=== PATIENT | female | born 1955 | race Asian ===

== ENCOUNTER 2017-08-27 07:14 | Day surgery (SDC) | payer BC, OTHER ==
[~2017-08-27 07:14] MED LIST: TIMOLOL 0.5% OPHTH DROPS ONE
[2017-08-27] MEDS ORDERED: LACTATED RINGERS 500 ML IV ONE (07:25)
[2017-08-27] MEDS ORDERED: PHENYLEPHRINE 2.5% OPHTH 2 ML DROPS ONE (07:35)
[2017-08-27] MEDS ORDERED: KETOROLAC 0.45% OPHTH DROPS ONE (07:35)
[2017-08-27] MEDS ORDERED: PROPARACAINE 0.5% OPHTH DROPS 15 ML ONE (07:35)
[2017-08-27] MEDS ORDERED: CYCLOPENTOLATE 1% OPHTH DROPS 2 ML ONE (07:35)
[2017-08-27] MEDS ORDERED: EPINEPHrine 1 MG/ML AMP IVP ONE ×2 (08:42→09:08)
[2017-08-27] MEDS ORDERED: CHONDR SULF/HYALURONATE SYRINGE IO ONE ×2 (08:42→09:08)
[2017-08-27] MEDS ORDERED: BRIMONIDINE 0.2% OPHTH DROPS 5 ML OPTH ONE ×2 (08:42→09:08)
[2017-08-27] MEDS ORDERED: TIMOLOL 0.5% OPHTH DROPS OPTH ONE ×2 (08:42→09:09)
[2017-08-27] MEDS ORDERED: BSS/LIDOCAINE/EPINEPHRINE 1 ML SYRINGE IO ONE ×2 (08:43→09:09)
[2017-08-27] MEDS ORDERED: TRIAMCIN/MOXIFLOX/VANCO 1 ML VIAL IO ONE ×3 (08:43→09:09)
[2017-08-27] MEDS ORDERED: PROPARACAINE 0.5% OPHTH DROPS 15 ML RIGHTEYE ONE ×2 (08:43→09:10)
[2017-08-27] MEDS ORDERED: MIDAZOLAM 2 MG/2 ML VIAL IVP ONE (09:11)
[2017-08-27 09:45] VITALS: BP 101/63
[2017-08-27] MEDS ORDERED: BRIMONIDINE 0.2% OPHTH DROPS 5 ML ONE (10:03)
--- NOTE | 2017-08-27 10:46 | OPERATIVE REPORT ---
DATE OF SERVICE: 08/27/2017 Physician: Дмитрий Freeman MD PREOPERATIVE DIAGNOSIS: Visually significant cataract, right eye. This is her first cataract surgery. POSTOPERATIVE DIAGNOSIS: Visually significant cataract, right eye. This is her first cataract surgery. NAME OF PROCEDURE: Phacoemulsification with posterior chamber intraocular lens implant, right eye. SURGEON: Дмитрий Freeman MD ANESTHESIA: Monitored anesthesia care. COMPLICATIONS: None. OPERATIVE INDICATIONS: This is a 62-year-old woman with progressive vision loss in the right eye due to 2+ nuclear sclerotic and 2+ posterior subcapsular cataract. Best corrected visual acuity was 20/30 with glare to 20/400 in the right eye. INDICATIONS FOR SURGERY: Overall decrease in vision, difficulty seeing words on the computer screen; difficulty seeing words, closed caption or game scores on TV; difficulty seeing street signs, difficulty driving in low light or at night, difficulty driving at night because of headlights from other vehicles, difficulty with glare or bright lights in any situation, difficulty tracking a golf ball and decreased acuity with firearms. She was consented at length concerning risks and benefits of cataract surgery, after which she expressed a desire to proceed with surgery. OPERATIVE PROCEDURE: The patient was taken into OR #3, and placed under monitored anesthesia care. A surgical timeout was conducted confirming correct patient, correct procedure, and correct surgical site. She was placed on the LenSx laser and her eye docked with the laser interface. The laser performed the capsulotomy, lens softening, phaco wounds and arcuate keratotomy incisions. She was then moved to the operating microscope, given topical anesthesia, and prepped and draped in the usual sterile fashion. The eye was entered at the 12 and 9 o'clock positions. Intracameral Shugarcaine was injected into the anterior chamber, followed by Viscoat. A capsulorrhexis flap created by the LenSx laser was removed from the anterior chamber. The nucleus was hydrodissected and phacoemulsified. The cortex was evacuated using automated infusion and aspiration. Provisc was injected in the capsular bag, and a 20.0 diopter intraocular lens was inserted in the bag. Approximately 0.8 mL of a mixture of triamcinolone, moxifloxacin and vancomycin was injected subconjunctivally in the superior quadrant for infection and inflammation prophylaxis. I and A was used to evacuate the viscoelastic materials. The eye was inflated to physiologic pressures with balanced salt solution and found to be watertight. The patient was taken from the operating room in good condition and given postoperative instructions. TD: 08/27/2017 10:46
== END 2017-08-27 07:15 | disposition home or self-care (01) ==
LOC: SDS 07:14
PROVIDERS: ATTEND Ophthalmology
PROC: 08RJ3JZ Replacement of Right Lens with Synthetic Substitute, Percutaneous Approach (ICD-10-PCS; principal; 2017-08-27 08:30)
DX: H25.811 Combined forms of age-related cataract, right eye (principal)
CPT/HCPCS: 66984; A9270; J3490; V2632

== ENCOUNTER 2017-10-15 08:56 | Day surgery (SDC) | payer BC ==
[~2017-10-15 08:56] MED LIST changes: +BRIMONIDINE 0.2% OPHTH DROPS 5 ML ONE
[2017-10-15] MEDS ORDERED: PHENYLEPHRINE 2.5% OPHTH 2 ML DROPS ONE (09:19)
[2017-10-15] MEDS ORDERED: PROPARACAINE 0.5% OPHTH DROPS 15 ML ONE (09:19)
[2017-10-15] MEDS ORDERED: KETOROLAC 0.45% OPHTH DROPS ONE (09:19)
[2017-10-15] MEDS ORDERED: CYCLOPENTOLATE 1% OPHTH DROPS 2 ML ONE (09:19)
[2017-10-15] MEDS ORDERED: CYCLOPENTOLATE 1% OPHTH DROPS 2 ML LEFTEYE ONE (09:30)
[2017-10-15] MEDS ORDERED: PHENYLEPHRINE 2.5% OPHTH 2 ML DROPS LEFTEYE ONE (09:30)
[2017-10-15] MEDS ORDERED: PROPARACAINE 0.5% OPHTH DROPS 15 ML LEFTEYE ONE ×2 (09:30→12:00)
[2017-10-15] MEDS ORDERED: KETOROLAC 0.45% OPHTH DROPS LEFTEYE ONE (09:30)
[2017-10-15] MEDS ORDERED: LACTATED RINGERS 500 ML IV ONE (09:46)
--- NOTE | 2017-10-15 10:53 | ANESTHESIA ---
Labs, EKG, Meds, Allergy - Medications Medications: Ambulatory Orders Medication Instructions Recorded Confirmed Rizatriptan Benzoate [Maxalt] 5 mg PO ONCE PRN 08/26/17 10/15/17 Valacyclovir HCl [Valtrex] 1,000 mg PO TID PRN 08/26/17 10/15/17 - Allergy Allergy: Allergies Allergy/AdvReac Type Severity Reaction Status Date / Time oxycodone [From Percocet] AdvReac Unknown Verified 10/15/17 09:31 Rizatriptan Benzoate [Maxalt] 5 mg PO ONCE PRN 08/26/17 Valacyclovir HCl [Valtrex] 1,000 mg PO TID PRN 08/26/17 Exam - Vitals Vitals:: Temp Pulse Resp BP Pulse Ox 36.6 C 61 16 104/60 96 10/15/17 09:22 10/15/17 09:22 10/15/17 09:22 10/15/17 09:22 10/15/17 09:22
[2017-10-15] MEDS ORDERED: BRIMONIDINE 0.2% OPHTH DROPS 5 ML OPTH ONE (11:58)
[2017-10-15] MEDS ORDERED: CHONDR SULF/HYALURONATE SYRINGE IO ONE (11:59)
[2017-10-15] MEDS ORDERED: BSS/LIDOCAINE/EPINEPHRINE 1 ML SYRINGE IO ONE ×2 (11:59)
[2017-10-15] MEDS ORDERED: EPINEPHrine 1 MG/ML AMP IR ONE (11:59)
[2017-10-15] MEDS ORDERED: TIMOLOL 0.5% OPHTH DROPS OPTH ONE (11:59)
[2017-10-15] MEDS ORDERED: TRIAMCIN/MOXIFLOX/VANCO 1 ML VIAL IO ONE ×2 (12:00)
[2017-10-15] MEDS ORDERED: MIDAZOLAM 2 MG/2 ML VIAL IVP ONE (12:00)
[2017-10-15 12:18] VITALS: BP 108/62
--- NOTE | 2017-10-15 21:22 | OPERATIVE REPORT ---
DATE OF SERVICE: 10/15/2017 Physician: Дмитрий Freeman MD PREOPERATIVE DIAGNOSIS: Visually significant cataract, left eye. This was her second cataract surgery. Cataract surgery was performed on the right eye on 08/27/2017. POSTOPERATIVE DIAGNOSIS: Visually significant cataract, left eye. This was her second cataract surgery was performed on the right eye on 08/27/2017. PROCEDURE: Phacoemulsification with posterior chamber intraocular lens implant, left eye. SURGEON: Дмитрий Freeman MD ANESTHESIA: Monitored anesthesia care. COMPLICATIONS: None. OPERATIVE INDICATIONS: This is a 62-year-old woman with progressive vision loss in the left eye due to 2+ nuclear sclerotic and 1+ posterior subcapsular cataract. Best corrected visual acuity was 20/30 with glare to 20/400 in the left eye. INDICATIONS FOR SURGERY: Overall decrease in vision, difficulty seeing words on a computer screen, difficulty reading, difficulty seeing street signs, difficulty driving in low light or night, difficulty driving at night because of headlights from other vehicles, difficulty with glare or bright lights in any situation, difficulty tracking a golf ball, and decreased acuity with firearms. She was consented at length concerning the risks and benefits of cataract surgery, after which she expressed a desire to proceed with surgery. OPERATIVE PROCEDURE: The patient was taken into OR #3 and placed under monitored anesthesia care. A surgical timeout was conducted confirming correct patient, correct procedure, and correct surgical site. She was placed on the LenSx laser and her eye docked to the laser interface. The laser performed the capsulotomy, lens softening, phaco wounds and arcuate keratotomy incisions. She was then moved to the operating microscope, given topical anesthesia and then prepped and draped in the usual sterile fashion. The eye was entered at the 6 and 3 o'clock positions. Intracameral Shugarcaine was injected into the anterior chamber, followed by Viscoat. The capsulorrhexis flap created by the LenSx laser was removed from the anterior chamber. Nucleus was hydrodissected and phacoemulsified, and the cortex was evacuated using automated infusion aspiration. Provisc was injected in the capsular bag, and a 20.0 diopter intraocular lens was inserted in the bag. Approximately 0.8 mL of a mixture of triamcinolone and moxifloxacin was injected subconjunctivally in the superior quadrant for infection and inflammation prophylaxis. I and A was used to evacuate the viscoelastic materials. The eye was inflated to physiologic pressure using balanced salt solution and found to be watertight. The patient was taken from the operating room in good condition and given postoperative instructions. TD: 10/15/2017 21:20
== END 2017-10-15 08:57 | disposition home or self-care (01) ==
LOC: SDS 08:56
PROVIDERS: ATTEND Ophthalmology
PROC: 08RK3JZ Replacement of Left Lens with Synthetic Substitute, Percutaneous Approach (ICD-10-PCS; principal; 2017-10-15 10:00)
DX: H25.812 Combined forms of age-related cataract, left eye (principal); I95.9 Hypotension, unspecified; G43.909 Migraine, unspecified, not intractable, without status migrainosus; Z86.73 Personal history of transient ischemic attack (TIA), and cerebral infarction without residual deficits
CPT/HCPCS: 66984; A9270; J3490; V2632

== ENCOUNTER 2018-04-01 11:56 | Emergency (ER) | payer BC ==
--- NOTE | 2018-04-01 13:01 | XRAY Report ---
Reason: Trauma Procedure Date: 04/01/2018 Accession Number: [id number] / [id number] Procedure: XR - Ankle 3 View RT CPT Code: FULL RESULT: EXAM: RIGHT ANKLE RADIOGRAPHY EXAM DATE: 04/01/2018 12:41 PM. CLINICAL HISTORY: Trauma. Pain. COMPARISON: None. TECHNIQUE: 3 views. FINDINGS: Bones: Acute comminuted displaced fracture mid diaphysis fifth metatarsal. Joints: Normal. No effusion. No subluxations. The ankle mortise is normally aligned. Soft Tissues: Edema at the fracture site. IMPRESSION: Fifth metatarsal fracture. RADIA
--- NOTE | 2018-04-01 13:10 | XRAY Report ---
Reason: Trauma Procedure Date: 04/01/2018 Accession Number: [id number] / [id number] Procedure: XR - Foot 3 View RT CPT Code: FULL RESULT: EXAM: RIGHT FOOT RADIOGRAPHY EXAM DATE: 04/01/2018 12:41 PM. CLINICAL HISTORY: Trauma. COMPARISON: None. TECHNIQUE: 3 views. FINDINGS: Diaphyseal fracture of the fifth metatarsal without extension to adjacent joints and approximately one shaft width medial displacement of the distal fragment. IMPRESSION: Fifth metatarsal fracture as described. RADIA
[2018-04-01] MEDS ORDERED: HYDROcod/ACETAM 5/325 MG TABLET PO STA (13:42)
--- NOTE | 2018-04-01 13:45 | ED Physician Documentation ---
PD HPI LOWER EXT INJURY - Stated complaint Stated Complaint: R FOOT INJ - Chief complaint Chief Complaint: Ext Problem - History obtained from History obtained from: Patient - History of Present Illness PD HPI LOW EXT INJURY LOCATION: Right, Foot Type of injury: Fall Where injury occurred: Home Timing - onset: Today Timing - details: Abrupt onset Improved by: Rest, Ice Associated symptoms: No: Numbness, Tingling, Swelling - Additional information Additional information: Fell downstairs and not sure which she did do her foot specifically. No other injuries. Orchard a crack. Cannot walk or bear weight. 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 HEENT: Cataracts, Other - Present Medications Home Medications: Ambulatory Orders Medication Instructions Recorded Confirmed Rizatriptan Benzoate [Maxalt] 5 mg PO ONCE PRN 08/26/17 10/15/17 Valacyclovir HCl [Valtrex] 1,000 mg PO TID PRN 08/26/17 10/15/17 Hydrocodone/Acetaminophen 1 - 2 each PO Q6H PRN #20 tablet 04/01/18 [Hydrocodon-Acetaminophen 5-325] Knee Scooter 1 unit TD ONCE #1 04/01/18 Multivitamin [Multiple Vitamins] 04/01/18 - Allergies Allergies/Adverse Reactions: Allergies Allergy/AdvReac Type Severity Reaction Status Date / Time oxycodone [From Percocet] AdvReac Unknown Verified 04/01/18 12:27 - Social History Does the pt smoke?: No Smoking Status: Never smoker Does the pt drink ETOH?: No Does the pt have substance abuse?: No - Immunizations Immunizations: TDAP >10years/unknown - POLST Patient has POLST: No PD ED PE NORMAL - Vitals Vital signs reviewed: Yes - General General: Alert and oriented X 3, No acute distress - Neck Neck: Supple, no meningeal sign, No bony TTP - Extremities Extremities: Other (Quite tender to the lateral midfoot, no deformity. Normal cap refill and sensation in all the digits.) - Neuro Neuro: Alert and oriented X 3, Normal speech Results - Vitals Vitals: Vital Signs - 24 hr 04/01/18 12:24 Temperature 36.4 C L Heart Rate 70 Respiratory 16 Rate Blood Pressure 123/71 O2 Saturation 98 Oxygen O2 Source Room air - Rads (name of study) R foot 3v Radiology: EMP read contemporaneously (Angulated midshaft fifth metatarsal fracture) Procedures - Splint (location) R foot Splint applied by: Tech Type of splint: Fiberglass, Short leg, Posterior Other: Patient tolerated well, No complications, Neurovascular intact, Crutches provided PD MEDICAL DECISION MAKING - Sepsis Event Vital Signs: Vital Signs - 24 hr 04/01/18 12:24 Temperature 36.4 C L Heart Rate 70 Respiratory 16 Rate Blood Pressure 123/71 O2 Saturation 98 Oxygen O2 Source Room air Departure - Departure Disposition: 01 Home, Self Care Clinical Impression: Displaced fracture of fifth metatarsal bone of right foot Qualifiers: Encounter type: initial encounter Fracture type: closed Qualified Code(s): S92.351A - Displaced fracture of fifth metatarsal bone, right foot, initial encounter for closed fracture Condition: Good Record reviewed to determine appropriate education?: Yes Instructions: ED Fx Foot Follow-Up: [facility] [Provider Group] - Within 1 week Prescriptions: Hydrocodone/Acetaminophen [Hydrocodon-Acetaminophen 5-325] 1 - 2 each PO Q6H PRN #20 tablet PRN Reason: pain Knee Scooter 1 unit TD ONCE #1 Comments: Follow-up with the orthopedist, call today for an appointment. Return if worse. Keep it elevated as much as possible. Do not walk or bear weight on it. Keep the splint on and dry at all times. Do not drink or drive while taking narcotic pain medication. Note that many narcotic pain relievers also contain Tylenol/acetaminophen. Please ensure that your total dose of acetaminophen from all sources does not exceed 3 g (3000 mg) per day. You may get constipated while on this medication. Take a stool softener such as Colace twice a day while you are on it. Also add an [id number] laxative such as senna or MiraLAX on any day that you do not have a bowel movement. If you received a narcotic pain medication or sedative while in the emergency department, do not drive for the next 24 hours.
[2018-04-01 14:28] VITALS: BP 124/72
== END 2018-04-01 14:26 | disposition home or self-care (01) ==
LOC: ED 11:56
DX: S92.351A Displaced fracture of fifth metatarsal bone, right foot, initial encounter for closed fracture (principal); W10.9XXA Fall (on) (from) unspecified stairs and steps, initial encounter; Y92.009 Unspecified place in unspecified non-institutional (private) residence as the place of occurrence of the external cause
CPT/HCPCS: 29515; 73610; 73630; 99283; A9270

== ENCOUNTER 2018-04-08 06:15 | Day surgery (SDC) | payer BC ==
[2018-04-08] MEDS ORDERED: ceFAZolin 2 GM/50 ML 2 GM/50 ML BAG IV ONE ×2 (06:29→08:54)
[2018-04-08] MEDS ORDERED: LACTATED RINGERS 1,000 ML IV ONE ×2 (07:00→09:22)
--- NOTE | 2018-04-08 07:05 | ANESTHESIA ---
Pre-Anesthesia VS, & Labs - Diagnosis right foot fifth metatarsal foot fracture - Procedure orif of fifth metatarsal right Vital Signs: Temp Pulse Resp BP Pulse Ox 36.6 C 75 16 117/60 97 04/08/18 06:46 04/08/18 06:46 04/08/18 06:46 04/08/18 06:46 04/08/18 06:46 Height 5 ft 2 in Weight (kg) 63.18 kg Body Mass Index 25.2 - NPO >8 hours - Is Patient ?: Not Applicable - Lab Results Lab results reviewed: Yes Home Medications and Allergies Rizatriptan Benzoate [Maxalt] 5 mg PO ONCE PRN 08/26/17 Valacyclovir HCl [Valtrex] 1,000 mg PO TID PRN 08/26/17 Multivitamin [Multiple Vitamins] 04/01/18 Allergies/Adverse Reactions: Allergies Allergy/AdvReac Type Severity Reaction Status Date / Time oxycodone [From Percocet] AdvReac Unknown Verified 04/01/18 12:27 Anes History & Medical History - Anesthetic History Anesthesia Complications: reports: No previous complications Family history of Anesthesia Complications: Denies Family history of Malignant Hyperthermia: Denies - Medical History Cardiovascular: reports: None Pulmonary: reports: Other Gastrointestinal: reports: None Urinary: reports: Chronic bladder infection, Kidney stones Musculoskeletal: reports: Osteoarthritis, Chronic back pain Endocrine/Autoimmune: reports: None Skin: reports: Herpes zoster Smoking Status: Never smoker - Surgical History General: Colonoscopy Eyes Ears Nose Throat (EENT): Cataracts, Tonsil/Adenoidectomy Gynecologic: Hysterectomy, Oophrectomy Orthopedic: Other Exam General: Alert, Oriented x3, Cooperative, No acute distress Dental: Other (bridges) Mouth Openin Fingerbreadth Neck Mobility: Normal Mallampati classification: II Thyromental Distance: greater than 6 cm Respiratory: Lungs clear, Normal breath sounds, No respiratory distress, No accessory muscle use Cardiovascular: Regular rate, Normal S1, Normal S2, No murmurs Mental/Cognitive Status: Alert/Oriented X3, Normal for patient Cognitive Status: Within normal limits Plan Anesthesia Type: General Consent for Procedure(s) Verified and Reviewed: Yes Code Status: Attempt Resuscitation ASA classification: 2-Mild systemic disease Is this case an emergency?: No
[2018-04-08] MEDS ORDERED: LIDOCAINE 1%-EPI 1:100000 30 ML MDV ONE (07:57)
[2018-04-08] MEDS ORDERED: BUPIVACAINE 0.25% PF 30 ML VIAL ONE (07:58)
[2018-04-08] MEDS ORDERED: LIDOCAINE 1%-EPI 1:100000 20 ML MDV SUBQ ONE ×2 (08:32)
[2018-04-08] MEDS ORDERED: BUPIVACAINE 0.25% PF 30 ML VIAL SUBQ ONE ×3 (08:33)
[2018-04-08] MEDS ORDERED: HYDROcod/ACETAM 5/325 MG TABLET PO PRN (08:53)
[2018-04-08] MEDS ORDERED: PROPOFOL 200 MG/20 ML VIAL IVP ONE (08:54)
[2018-04-08] MEDS ORDERED: MIDAZOLAM 2 MG/2 ML VIAL IVP ONE (08:54)
[2018-04-08] MEDS ORDERED: ePHEDrine 50 MG/ML VIAL IVP ONE (08:54)
[2018-04-08] MEDS ORDERED: LIDOCAINE-MPF 2% 5 ML VIAL IM ONE (08:54)
[2018-04-08] MEDS ORDERED: ONDANSETRON 4 MG/2 ML VIAL IVP ONE (08:54)
[2018-04-08] MEDS: fentaNYL 100 MCG/2 ML VIAL ONE ×4 (08:58→09:21)
[2018-04-08] MEDS ORDERED: KETOROLAC 30 MG/ML VIAL ONE (08:58)
[2018-04-08] MEDS ORDERED: ACETAMINOPHEN 1,000 MG/100 ML 100 ML IV ONE (08:58)
[2018-04-08] MEDS ORDERED: HYDROcod/ACETAM 5/325 MG TABLET ONE (09:46)
[2018-04-08 10:39] VITALS: BP 128/55
--- NOTE | 2018-04-08 12:49 | OPERATIVE REPORT ---
DATE OF SERVICE: 04/08/2018 Physician: Leno Gamboa MD PREOPERATIVE DIAGNOSIS: Right foot fifth metatarsal displaced oblique fracture. POSTOPERATIVE DIAGNOSIS: Right foot fifth metatarsal displaced oblique fracture. PROCEDURE PERFORMED: Open reduction, internal fixation of right fifth metatarsal fracture. OPERATING SURGEON: Leno Gamboa MD ANESTHESIA: General, Dr. Souza. INDICATIONS FOR SURGERY: Patient is a 63-year-old female who is status post a twisting injury of her foot resulting in a mildly comminuted but widely displaced fracture of her fifth metatarsal shaft. Because of concerns of possible nonunion and persistent pain it was recommended the patient undergo o pen reduction internal fixation. FINDINGS AT SURGERY: The patient's foot was shown to be mildly swollen. Her fracture widely displac ed with hematoma in the gap and mild comminution with a separate fracture fragment. The patient's asya ne fixation was good with 2 screws and felt to be satisfactory and adequate. DESCRIPTION OF OPERATIVE PROCEDURE: The patient was taken to the operating room and was given a gene ral anesthetic in a supine position on the OR table. A tourniquet was placed on her thigh. Her leg and foot were sterilely prepped and draped in standard fashion. Once her foot was prepped a surgical timeout was held. Marking pen was used to identify the planned surgical incision, which was infiltr ated with 1% lidocaine with epinephrine, as well as placing an ankle block with the same medication a t the anterolateral ankle in the area of the sural nerve. After this, the tourniquet was inflated to 300 mmHg. The patient's incision was made and carefully dissected down through soft tissue to the l ateral aspect of the fifth metatarsal. Tissue was reflected from the fracture and hematoma evacuated and a clamp used to reduce the fracture in anatomic position. It was felt at this point that the pa tient could do well with simple screw fixation and an initial 2 mm screw as a lag screw was placed, f ollowed by a 1.5 mm more proximal screw. The screw fixation gain was excellent and the reduction noel tomic. C-arm images confirmed position of screws and reduction of the fracture. The foot wound was irrigated thoroughly. Tourniquet was deflated and there was minimal bleeding. Closure was undertake n with interrupted 3-0 Vicryl subcuticular and 4-0 Monocryl suture running subcuticular and skin. St erile dressings were applied. The patient had repeat infiltration block performed of 0.25% Marcaine plain. After sterile dressing application, the patient was fitted into her CAM boot and taken to the recovery room in stable condition. Estimated blood loss for the procedure was minimal, less than 10 mL COMPLICATIONS: None. COUNTS: Sponge and needle counts correct. TD: 04/08/2018 09:36
== END 2018-04-08 06:16 | disposition home or self-care (01) ==
LOC: SDS 06:15
PROVIDERS: ATTEND Orthopaedic Surgery
PROC: 0QSN04Z Reposition Right Metatarsal with Internal Fixation Device, Open Approach (ICD-10-PCS; principal; 2018-04-08 07:30)
DX: S92.351A Displaced fracture of fifth metatarsal bone, right foot, initial encounter for closed fracture (principal); M06.9 Rheumatoid arthritis, unspecified; Z86.73 Personal history of transient ischemic attack (TIA), and cerebral infarction without residual deficits
CPT/HCPCS: 28485; A9270; C1713; J0131; J0690; J7120

== ENCOUNTER 2018-11-11 09:19 | Outpatient (CLI) | payer BC | END 2018-11-11 09:20 | disposition home or self-care (01) | LOC: RT 09:19 | PROVIDERS: ATTEND Internal Medicine Cardiovascular Disease | DX: R00.2 Palpitations (principal); R07.9 Chest pain, unspecified | CPT/HCPCS: 93005 ==